=== PATIENT | male | born 1995 | race Caucasian/White ===

== ENCOUNTER 2023-08-23 02:02 | Inpatient (IN) | payer BC ==
[~2023-08-23] VITALS: Ht 180.3 cm; Wt 99.8 kg
[2023-08-23 02:07] VITALS: BP 88/41; PULSE 85; RESP 18; TEMP 97.5; O2SAT 98
[2023-08-23 03:06] LABS: BASOPHILS % (AUTO) 0.5 % (0.0-2.0); EOSINOPHILS # (AUTO) 0.3 K/uL (0-0.4); EOSINOPHILS % (AUTO) 4.4 % (0.0-4.0); HEMATOCRIT 31.4 % (36-52); HEMOGLOBIN 10.8 g/dL (12.0-18.0); LYMPHOCYTES # (AUTO) 2.7 K/uL (2.0-11.5); LYMPHOCYTES % (AUTO) 35.8 % (20.5-51.1); MEAN CORPUSCULAR HEMOGLOBIN 28 pg (27-31); MEAN CORPUSCULAR HGB CONC 34 g/dL (33-37); MEAN CORPUSCULAR VOLUME 82.6 fL (80-94); MONOCYTES # (AUTO) 0.8 K/uL (0.8-1.0); MONOCYTES % (AUTO) 10.8 % (1.7-9.3); NEUTROPHILS # (AUTO) 3.7 K/uL (1.8-7.7); NEUTROPHILS % (AUTO) 48.5 % (42.2-75.2); PLATELET COUNT (AUTO) 220 K/uL (140-450); RED CELL DISTRIBUTION WIDTH 16.9 % (11.6-13.7); WHITE BLOOD COUNT (AUTO) 7.6 K/uL (4.8-10.8)
[2023-08-23] MEDS ORDERED: levETIRAcetam 100 MG/ML VIAL IV ONE (03:13)
[2023-08-23] MEDS: NACL 0.9% 1,000 ML IV ONE ×2 (03:21→06:13)
[2023-08-23] MEDS: levETIRAcetam 1,000 MG in NACL 0.9% 100 ML IV ONE (03:27)
[2023-08-23 03:36] LABS: ALBUMIN 2.9 g/dL (3.4-5.0); ANION GAP 7.9 (8-16); CALCIUM 7.9 mg/dL (8.5-10.1); CARBON DIOXIDE 29.5 mmol/L (21-32); CREATININE 1.1 mg/dL (0.6-1.3); POTASSIUM 4.4 mmol/L (3.5-5.1); TOTAL BILIRUBIN 0.2 mg/dL (0.0-1.0); TOTAL PROTEIN, SERUM 6.4 g/dL (6.4-8.2)
[2023-08-23] MEDS ORDERED: NALOXONE 0.4 MG/ML VIAL ONE (03:40)
[2023-08-23] MEDS: NALOXONE 0.4 MG/ML VIAL IVP ONE (03:51)
[2023-08-23 04:59] LABS: FLU A ANTIGEN negative (NEGATIVE); FLU B ANTIGEN NEGATIVE (NEGATIVE)
[2023-08-23 05:03] LABS: APPEARANCE,URINE CLEAR (CLEAR); BILIRUBIN,URINE NEGATIVE (NEGATIVE); BLOOD, URINE NEGATIVE (NEGATIVE); COLOR,URINE YELLOW (YELLOW); LEUKOCYTE ESTERASE ,URINE NEGATIVE (NEGATIVE); NITRITE, URINE NEGATIVE (NEGATIVE); PH,URINE 6.5 (5.0-9.0); PROTEIN,URINE NEGATIVE (NEGATIVE); UGLUCOSE NEGATIVE (NEGATIVE); UROBILINOGEN,URINE 0.2 EU/dL (0.2 - 1)
[2023-08-23] MEDS ORDERED: GABA400C PO (05:32)
[2023-08-23] MEDS ORDERED: FLUO10CA21 PO (05:32)
[2023-08-23] MEDS ORDERED: TAMS0.4C96 PO (05:32)
[2023-08-23] MEDS ORDERED: VALS160T2 PO (05:32)
[2023-08-23] MEDS ORDERED: [UNRECOGNIZED DRUG - CODE] PO (05:32)
[2023-08-23] MEDS ORDERED: PANT40EC PO (05:32)
[2023-08-23] MEDS ORDERED: DOXY-690 PO (05:32)
[2023-08-23] MEDS ORDERED: LORazepam 2 MG/ML VIAL IVP PRN (05:35)
[2023-08-23 05:38] LABS: AMPHETAMINE, URINE NEGATIVE ng/ml (NEG <=1000); BARBITURATE, URINE POSITIVE ng/ml (NEG <=200); BENZODIAZEPINE, URINE POSITIVE ng/mL (NEG <=200); CANNABINOID, URINE NEGATIVE ng/mL (NEG <=50); COCAINE, URINE NEGATIVE ng/mL (NEG <=300); OPIATE, URINE NEGATIVE ng/mL (NEG <=2000); PHENCYCLIDINE SCREEN,URINE NEGATIVE ng/mL (NEG <=25)
[2023-08-23] MEDS ORDERED: LACT-103 PO (05:43)
[2023-08-23] MEDS ORDERED: IMO2 PO (05:43)
[2023-08-23] MEDS ORDERED: HYDR25CA1 PO (05:43)
[2023-08-23] MEDS ORDERED: ONDA-188 PO (05:43)
[2023-08-23] MEDS ORDERED: PHEN60TA PO (05:43)
[2023-08-23] MEDS ORDERED: HYDROXYZINE HYDROCHLORIDE 25 MG TAB PO PRN (06:35)
[2023-08-23 06:38] LABS: BASOPHILS % (AUTO) 0.5 % (0.0-2.0); EOSINOPHILS # (AUTO) 0.4 K/uL (0-0.4); EOSINOPHILS % (AUTO) 5.7 % (0.0-4.0); HEMATOCRIT 34.1 % (36-52); HEMOGLOBIN 11.5 g/dL (12.0-18.0); LYMPHOCYTES # (AUTO) 2.5 K/uL (2.0-11.5); LYMPHOCYTES % (AUTO) 35.5 % (20.5-51.1); MEAN CORPUSCULAR HEMOGLOBIN 28 pg (27-31); MEAN CORPUSCULAR HGB CONC 34 g/dL (33-37); MEAN CORPUSCULAR VOLUME 83.1 fL (80-94); MONOCYTES # (AUTO) 0.7 K/uL (0.8-1.0); MONOCYTES % (AUTO) 9.6 % (1.7-9.3); NEUTROPHILS # (AUTO) 3.4 K/uL (1.8-7.7); NEUTROPHILS % (AUTO) 48.7 % (42.2-75.2); PLATELET COUNT (AUTO) 236 K/uL (140-450); RED BLOOD CELL COUNT(AUTO) 4.11 MIL/uL (4.20-6.10); RED CELL DISTRIBUTION WIDTH 16.8 % (11.6-13.7); WHITE BLOOD COUNT (AUTO) 7.1 K/uL (4.8-10.8)
[2023-08-23] MEDS ORDERED: PRAZ1CAP5 PO (06:39)
[2023-08-23] MEDS ORDERED: BUPR8TAB3 SL (06:39)
[2023-08-23] MEDS ORDERED: CARI3CAP PO (06:39)
[2023-08-23] MEDS ORDERED: DARI50TA PO (06:39)
[2023-08-23 07:02] LABS: ANION GAP 7.9 (8-16); CALCIUM 8.3 mg/dL (8.5-10.1); CARBON DIOXIDE 29.2 mmol/L (21-32); CREATININE 1.1 mg/dL (0.6-1.3); POTASSIUM 4.1 mmol/L (3.5-5.1); TOTAL BILIRUBIN 0.2 mg/dL (0.0-1.0); TOTAL PROTEIN, SERUM 6.8 g/dL (6.4-8.2)
[2023-08-23 08:15] VITALS: BP 119/63; PULSE 81; PULSE 84; RESP 18; TEMP 96.3; O2SAT 94
[2023-08-23 09:00] VITALS: PULSE 84; RESP 18; O2SAT 94
[2023-08-23] MEDS ORDERED: LOPERAMIDE 2 MG CAP PO PRN (10:35)
[2023-08-23 12:00] VITALS: BP 110/60; PULSE 69; PULSE 74; RESP 18; TEMP 97.4; O2SAT 96
[2023-08-23] MEDS ORDERED: chlordiazePOXIDE 25 MG CAP PO SCH (13:00)
[2023-08-23] MEDS: LORazepam 2 MG/ML VIAL IVP PRN (13:39)
[2023-08-23] MEDS: GABAPENTIN 100 MG CAP PO SCH (13:59)
[2023-08-23] MEDS ORDERED: BUPRENORPHINE HCL SL SCH (21:00)
[2023-08-23] MEDS ORDERED: DOXYCYCLINE 100 MG CAP PO SCH (21:00)
[2023-08-23] MEDS ORDERED: buprenorphine HCL 2 MG sublingual tab SL SCH (21:00)
[2023-08-23] MEDS ORDERED: levETIRAcetam 500 MG in NACL 0.9% 100 ML IV SCH (21:00)
[2023-08-23] MEDS ORDERED: BUPRENORPHINE HCL 8 MG SL SCH (21:00)
[2023-08-24] MEDS ORDERED: DISULFIRAM 250 MG PO SCH (09:00)
[2023-08-24] MEDS ORDERED: PRAZOSIN 1 MG CAP PO SCH (09:00)
[2023-08-24] MEDS ORDERED: TAMSULOSIN 0.4 MG CAP PO SCH (09:00)
[2023-08-24] MEDS ORDERED: CARIPRAZINE HCL PO SCH (09:00)
[2023-08-24] MEDS ORDERED: DARIDOREXANT HCL PO SCH (09:00)
[2023-08-24] MEDS ORDERED: FLUoxetine 10 MG CAP PO SCH (09:00)
[2023-08-24] MEDS ORDERED: PANTOPRAZOLE 40 MG TABEC PO SCH (09:00)
== END 2023-08-23 14:15 | disposition left against medical advice (07) | DRG 101 ==
LOC: MED 02:02 → MTU 05:41 → MIC 06:00 → MTU 07:54
PROVIDERS: ADMIT Student in an Organized Health Care Education/Training Program; ATTEND Student in an Organized Health Care Education/Training Program
DX: G40.909 Epilepsy, unspecified, not intractable, without status epilepticus (principal); I95.9 Hypotension, unspecified; Z20.822 Contact with and (suspected) exposure to COVID-19; F19.10 Other psychoactive substance abuse, uncomplicated; F10.10 Alcohol abuse, uncomplicated; N41.9 Inflammatory disease of prostate, unspecified; I10 Essential (primary) hypertension; Z79.899 Other long term (current) drug therapy
CPT/HCPCS: 36415; 71045; 80053; 80305; 81003; 82948; 85025; 87081; 93005; 96365; 99291; J1953; J2060; J2310; Q0092